=== PATIENT | female | born 1980 | race Caucasian/White ===

== ENCOUNTER 2022-07-05 12:04 | Inpatient (IN) ==
[2022-07-05] MEDS ORDERED: Lactated Ringers 1000 ml BAG 1,000 ML IV ONE (15:55)
[2022-07-05] MEDS ORDERED: Buffered Lidocaine 1% SYRIN 1 ml INTRADERM ONE (15:55)
[2022-07-05] MEDS ORDERED: Lactated Ringers 1000 ml BAG 1,000 ML IV SCH (16:00)
[2022-07-05] MEDS ORDERED: miSOPROStol 100 mcg TAB PO ONE (16:46)
[2022-07-05 17:37] LABS: Urine Benzodiazepine Screen None Detected (None Detect); Urine Cannabinoids Screen None Detected (None Detect); Urine Opiates Screen None Detected (None Detect)
[2022-07-05] MEDS ORDERED: Penicillin G Potassium IV 5,000,000 UNITS in NS 0.9% 100 ml BAG 100 ML IVPB ONE (20:30)
[2022-07-05 20:40] LABS: ABS Lymphocytes 1.4 10^3/ul (1.0-4.8); ABS Monocytes 0.5 10^3/ul (0-0.8); ABS Neutrophils 6.5 10^3/ul (1.5-7.7); Eosinophil % 0.3 %; Hematocrit 36 % (35-47); Hemoglobin 11.3 g/dL (12.0-16.0); Lymphocyte % 16.5 %; Mean Corpuscular HGB Conc 32 g/dL (31-36); Mean Corpuscular Hemoglobin 25 pg (27-31); Mean Corpuscular Volume 79 fL (80-97); Mean Platelet Volume 9.1 fL (7.4-10.4); Nucleated Red Blood Cells % 0.1; Platelet Count 223 10^3/uL (150-450); Red Blood Count 4.53 10^6 /uL (3.70-4.87); Red Cell Distribution Width 17 % (10-15); White Blood Count 8.4 10^3/uL (3.5-10.8)
[2022-07-06] MEDS ORDERED: OBEPIDURAL (200 ML) 200 ML EPIDURAL ONE (00:04)
[2022-07-06] MEDS ORDERED: Lidocaine 1% w EPI 1:200,000 SDV 30 ML VIAL ONE (00:10)
[2022-07-06] MEDS ORDERED: Sodium Citrate/Citric Acid LIQ 15 ML UDC PO PRN (00:53)
[2022-07-06] MEDS ORDERED: Lactated Ringers 1000 ml BAG 1,000 ML IV ONE (00:53)
[2022-07-06] MEDS ORDERED: Phenylephrine 40 mcg/mL 10mL (400mcg) SYRINGE IV PUSH PRN ×2 (00:53)
[2022-07-06] MEDS ORDERED: Lactated Ringers 1000 ml BAG 1,000 ML IV SCH ×2 (01:00→06:00)
[2022-07-06] MEDS ORDERED: OBEPIDURAL (200 ML) 200 ML EPIDURAL SCH (01:00)
[2022-07-06] MEDS ORDERED: Penicillin G Potassium IV 3,000,000 UNITS in NS 0.9% 100 ml BAG 100 ML IVPB SCH (01:30)
[2022-07-06 01:44] LABS: Urine Appearance Clear; Urine Bilirubin Negative (Negative); Urine Blood Negative (Negative); Urine Color Yellow; Urine Glucose Negative (Negative); Urine Ketones 1+ (15mg/dL) (Negative); Urine Nitrite Negative (Negative); Urine Protein Negative (Negative); Urine Urobilinogen 0.2 (Negative) (Negative); Urine pH 6.5 (5.0-9.0)
[2022-07-06] MEDS ORDERED: Oxytocin in LR 20,000 MILLI.UNIT/1,000 ML BAG IV ONE (05:00)
[2022-07-06] MEDS ORDERED: Dibucaine 1% OINT 28.35 GM TUBE PR PRN (05:53)
[2022-07-06] MEDS: Oxytocin in LR 20,000 MILLI.UNIT/1,000 ML BAG IV SCH ×2 (06:18→09:31)
[2022-07-06] MEDS: Witch Hazel PAD JAR TOPICAL PRN (08:15)
[2022-07-07 07:35] LABS: ABS Lymphocytes 1.5 10^3/ul (1.0-4.8); ABS Monocytes 0.6 10^3/ul (0-0.8); ABS Neutrophils 5.8 10^3/ul (1.5-7.7); Eosinophil % 0.4 %; Hematocrit 28 % (35-47); Hemoglobin 9.3 g/dL (12.0-16.0); Lymphocyte % 18.7 %; Mean Corpuscular HGB Conc 34 g/dL (31-36); Mean Corpuscular Hemoglobin 27 pg (27-31); Mean Corpuscular Volume 79 fL (80-97); Mean Platelet Volume 8.8 fL (7.4-10.4); Platelet Count 208 10^3/uL (150-450); Red Cell Distribution Width 17 % (10-15); White Blood Count 7.9 10^3/uL (3.5-10.8)
[2022-07-07] MEDS: Witch Hazel PAD JAR TOPICAL PRN (07:51)
[2022-07-08 08:40] VITALS: BP 104/63
== END 2022-07-08 13:30 | disposition home or self-care (01) | DRG 807 ==
LOC: MCHOBOUT 12:04 → MCHOB 16:52
PROVIDERS: ADMIT Midwife; ATTEND Midwife